=== PATIENT | female | born 2005 | race Caucasian/White ===

== ENCOUNTER 2025-05-02 15:17 | Emergency (ER) | payer BC, SELFPAY ==
[2025-05-02 15:22] VITALS: BP 126/83
[2025-05-02 15:55] LABS: Hematocrit 39.9 % (37.0-47.0); Hemoglobin 13.4 g/dL (12.0-16.0); Mean Corp Hgb Conc. 33.6 g/dL (33.0-37.0); Mean Corpuscular Volume 86.0 fL (81.0-99.0); Nucleated Red Blood Cells % 0 %; Platelet Count 292 10^3/uL (130-400); Red Cell Dist. Width 12.2 % (11.5-14.5)
[2025-05-02 16:11] LABS: ALT (SGPT) 29 U/L (0-35); AST (SGOT) 29 U/L (14-36); Albumin 4.6 g/dl (3.5-5.0); Alkaline Phosphatase 64 U/L (38-126); Blood Urea Nitrogen 8 mg/dl (7-17); Calcium 9.2 mg/dl (8.4-10.2); Carbon Dioxide 26 mmol/L (22-30); Chloride 104 mmol/L (98-107); Glucose 119 mg/dl (70-99); Potassium 4.0 mmol/L (3.5-5.1); Sodium 138 mmol/L (135-145); Total Protein 7.4 g/dl (6.3-8.2); eGFR > 60.00
[2025-05-02 16:19] LABS: D-Dimer 0.30 ug/mlFEU (0.00-0.50)
[2025-05-02 16:22] LABS: Troponin I < 0.012 ng/ml
[2025-05-02 17:37] VITALS: BP 137/70
--- NOTE | 2025-05-02 18:04 | ED.GENMED ---
History of Present Illness
General
Chief Complaint: Chest Pain
Source: patient
Time Seen by Provider: 05/02/25 17:37
History of Present Illness
History of Present Illness:
Note:
CHIEF COMPLAINT(S)
The patient presents with chest pain, upper back and shoulder pain, pain radiating to the neck and upper arm, accompanied by nausea, shortness of breath, lightheadedness, and an episode of loss of consciousness.
HISTORY OF PRESENT ILLNESS
The patient is a 19-year-old female who reports experiencing intense chest pain starting yesterday. The pain initially was localized but then radiated to the right side and felt diffuse. Accompanying symptoms included pain in the upper back,
shoulder, upper arm, neck, nausea, shortness of breath, and lightheadedness. The patient also experienced a loss of consciousness and �twitchy� hands between 11:30 AM and 12:30 PM yesterday. While the loss of consciousness was a singular event, the
other symptoms have persisted into today. The patient describes the chest pain as exacerbated by deep breathing, sending a shooting pain, and notes constant neck, back, and shoulder pain. The patient reports episodes of acid reflux occurring twice
yesterday. The pain described is more prevalent laterally with slight movement eliciting discomfort. She recently traveled from [place], carrying a notably heavy backpack, and suggested it might be a muscle strain. Previous ER evaluation over the
summer attributed similar symptoms to dehydration, but she believes current symptoms are not due to dehydration.
SOCIAL DETERMINANTS AFFECTING HEALTH
The patient mentions carrying a notably heavy backpack, possibly contributing to muscle strain, and recently traveled back home to [place].
REVIEW OF SYSTEMS
- Cardiovascular: Chest pain noted.
- Respiratory: Shortness of breath.
- Neurological: Lightheadedness, loss of consciousness, hand twitching.
- Gastrointestinal: Nausea, acid reflux.
- Musculoskeletal: Pain in the upper back, shoulders, neck, and upper arm.
PHYSICAL EXAM
General: Alert, no acute distress.
Skin: Warm, dry.
Head: Normocephalic, atraumatic.
Neck: Supple, trachea midline, tenderness along trapezius muscles.
Ears, Nose, Mouth, and Throat: Oral mucosa moist.
Cardiovascular: Normal heart sounds without murmurs, normal peripheral perfusion, no edema.
Respiratory: Respirations are non-labored, lungs clear on auscultation.
Gastrointestinal: Abdomen nondistended.
Back: Normal range of motion, normal alignment.
Musculoskeletal: Normal range of motion, normal strength, tenderness in trapezius muscles.
Neurological: Alert and oriented to person, place, time, and situation, no focal neurological deficit observed.
Psychiatric: Cooperative, appropriate mood & affect.
PLAN
1. Perform a chest x-ray to rule out any significant cardiac or pulmonary issues.
2. Advise the patient to take non-steroidal anti-inflammatory drugs (NSAIDs) such as ibuprofen or acetaminophen for pain management.
3. Reassure the patient that preliminary tests so far have ruled out significant cardiac and pulmonary issues, emphasizing the importance of ruling out serious conditions.
4. Evaluate further based on x-ray results and continue symptomatic treatment if non-cardiac pain is confirmed.
DIFFERENTIAL DIAGNOSIS
The Differential Diagnosis includes, in no particular order and is not limited to:
1. Musculoskeletal strain or sprain
2. Gastroesophageal reflux disease
3. Anxiety or panic attack
4. Costochondritis
5. Pleuritis
6. Pneumothorax
7. Pericarditis
8. Myocarditis
9. Pulmonary embolism
10. Myocardial ischemia
EKG
My independent EKG interpretation is:
- Time of EKG: Not specified
- Rhythm: Normal
- Heart Rate: 92 bpm
- WI Interval: Not specified
- QRS Duration: Normal
- QT Interval: Not specified
- [place]: Normal
- Abnormalities: No ST segment changes, no T wave inversions, no arrhythmias observed
Disposition:
SUMMARY OF ENCOUNTER
The patient is a 19-year-old female with no significant past medical history who presented with chest pain starting the day before. The pain was associated with symptoms such as upper back, shoulder, neck pain, and nausea. After conducting an EKG,
which returned normal results, and laboratory tests including a troponin level which was normal, the patient was assessed for any serious cardiac or pulmonary issues. Normal hemoglobin (13.4), normal white blood cell count, normal differential blood
count, and normal chest x-ray were noted. Based on her recent activity of carrying a heavy backpack and the localization of pain in the trapezius muscle, it is suspected that the underlying cause may be musculoskeletal in nature.
DISPOSITION
Discharge.
ASSESSMENT
Musculoskeletal strain or sprain secondary to recent activity of carrying a heavy backpack.
PLAN
Reassure the patient that the workup shows no significant cardiac or pulmonary issues. Recommend the use of non-steroidal anti-inflammatory drugs (NSAIDs) such as ibuprofen for pain management and advise rest and avoidance of heavy lifting.
INDEPENDENT REVIEW OF LABS AND INTERPRETATION OF TESTS
- My independent review of the EKG is normal, with no abnormalities found.
- My independent review of troponin is normal.
- My independent review of CBC shows normal hemoglobin at 13.4, normal white blood cell count, and normal differential.
- My independent review of the chest x-ray is normal.
MEDICATION RECONCILIATION
Prescription medication was prescribed: NSAIDs such as ibuprofen for pain management.
MEDICAL DECISION MAKING
-Complexity of Data Reviewed: Includes differential diagnoses such as musculoskeletal strain, gastroesophageal reflux disease, anxiety or panic attack, costochondritis, pleuritis, pneumothorax, pericarditis, myocarditis, pulmonary embolism, and
myocardial ischemia.
-Data:
Category 1:
- My independent review of lab tests (CBC, troponin, D-dimer) and imaging (chest x-ray).
Category 2:
- Input was obtained from the patients disclosure of recent heavy lifting activities.
-Risk:
Consideration of Admission/Observation: Escalation of care including admission/observation was considered given the complexity and risk of the patients presenting complaint. However, ultimately, I feel the patient is safe for outpatient management
with close follow-up. Reasoning: Work-up reassuring, does not reveal any acute life/organ-threatening processes, patients symptoms well controlled upon reevaluation, reexamination is reassuring, vitals are stable, patient agreeable with discharge,
reliable for follow-up.
DIAGNOSIS
Strain of muscle, fascia, and tendon at neck level, S16.1XXA.
Phy Exam
Physical Exam
Physical Exam:
.
Scores
Heart Score for Chest Pain Patients
STEMI patient?: No
History: Slightly or Non-Suspicious
ECG: Normal
Age: </= 45 years
Risk Factors: No Risk Factors
Troponin: </= Normal Limit
Heart Score for Chest Pain Patients: 0
Heart Score Risk: 2.5% MACE over next 6 weeks
Course
Orders/Labs/Results
Orders:
Orders
05/02/25 15:18
EKG [Electrocardiogram (*1)] Urgent
Reason for Study: Chest Pain
EKG- Treatment ONCE
05/02/25 15:41
CMP [Comprehensive Metabolic Panel] Urgent
Complete Blood Count/With Diff Urgent
DDimer [D-Dimer] Urgent
Troponin I Urgent
05/02/25 17:52
CR Chest - 2 Views Urgent
Comment:
Reason For Exam: cp
Abnormal Lab Results
05/02/25
15:41
Glucose 119 H mg/dl
(70-99)
05/02/25 15:41
05/02/25 15:41
Vital Signs
Initial and Last Documented VS:
Initial Vital Signs
Temp Pulse Resp BP Pulse Ox
98.2 F 91 18 126/83 97
05/02/25 15:22 05/02/25 15:22 05/02/25 15:22 05/02/25 15:22 05/02/25 15:22
Last Documented Vital Signs
Temp Pulse Resp BP Pulse Ox
98.2 F 74 16 134/78 99
05/02/25 15:22 05/02/25 18:23 05/02/25 18:23 05/02/25 18:23 05/02/25 18:23
*Pulse Oximetry
SaO2: 97
Oxygen Mode of Delivery: Room air
Patient hypoxic: no
*Critical Care Note
Total Time (30-74mins, 75-104mins- exclusive of procedures): Not Applicable
ED Attending Note
-
Portions of this chart may have been created with voice recognition software.� Occasional wrong word or��sound alike� substitutions may have occurred due to the inherent limitations of voice recognition software.
Discharge Plan
Departure
Patient Disposition: Home (Routine Discharge)
Date of Disposition: 05/02/25
Time of Disposition: 18:17
Patient with high blood pressure during this ER visit?: No
Discharge Problem:
Chest pain
Instructions: Chest Pain That Is Not Caused by the Heart (DC)
Activity Restrictions/Additional Instructions:
Return immediately for shortness of breath, worsening symptoms, other concerns. Use ibuprofen as needed for pain in your trapezius.
Interventions
Interventions:
*Risk Screen - Suicide Last Done: 05/02/25 17:37
*General Assessment Last Done: 05/02/25 15:22
*Neglect/Abuse Screening Last Done: 05/02/25 15:22
*ED- Fall Risk Assessment Last Done: 05/02/25 17:36
*ED COVID-19 Vaccine History Last Done: 05/02/25 17:36
*ED Influenza Vaccine History Last Done: 05/02/25 17:36
*Nursing Disposition Last Done: 05/02/25 18:23
ED- Cardiac Assessment Last Done: 05/02/25 17:37
Discharge Date and Time
Discharge Date/Time: 05/02/25 18:37
Print Language: IRISH
[2025-05-02 18:23] VITALS: BP 134/78
== END 2025-05-02 18:37 | disposition home or self-care (01) ==
LOC: EMR 15:17
PROVIDERS: EMERGENCY PHYSICIAN Emergency Medicine
DX: R07.89 Other chest pain (principal); K21.9 Gastro-esophageal reflux disease without esophagitis
CPT/HCPCS: 99283; 71046; 80053; 84484; 85025; 85379; 93005